=== PATIENT | female | born 1970 | race Caucasian/White ===

== ENCOUNTER → 2020-08-09 | Outpatient (CLI) | payer BC ==
[2005-02-12 02:58] VITALS: PULSE 67; TEMP 97
== END ==
LOC: MC.RAD 07:45
DX: Z12.31 Encounter for screening mammogram for malignant neoplasm of breast (principal)

== ENCOUNTER → 2023-05-26 | Outpatient (CLI) | payer BC ==
[2005-02-12 02:58] VITALS: TEMP 97
== END ==
LOC: MC.RAD 08:00
DX: Z12.31 Encounter for screening mammogram for malignant neoplasm of breast (principal)